=== PATIENT | male | born 1990 | race Caucasian/White ===

== ENCOUNTER 2020-12-29 03:16 | Inpatient (IN) ==
[2020-12-29 03:53] LABS: Amphetamines+Metham, Urine Neg (Neg); Barbiturates, Urine Neg (Neg); Benzodiazepine, Urine Neg (Neg); Cocaine, Urine Neg (Neg); MDMA (Ecstacy), Urine Neg (Neg); Methadone, Urine Neg (Neg); Opiate, Urine Neg (Neg); Phencyclidine, Urine Neg (Neg)
[2020-12-29 04:07] LABS: Basophils # (auto) 0.01 K/uL (0-0.2); Basophils % (auto) 0.1 %; Eosinophils # (auto) 0.02 K/uL (0-0.5); Eosinophils % (auto) 0.2 %; Hematocrit (blood only) 44.9 % (42-52); Immature Granulocytes # (auto) 0.02 K/uL (0.00-0.02); Immature Granulocytes % (auto) 0.2 %; Lymphocytes # (auto) 1.39 K/uL (1.2-3.4); Lymphocytes % (auto) 14.2 %; Mean Corpuscular Hemoglobin 29.8 pg (25-34); Mean Corpuscular Hgb Conc 35.6 g/dL (32-36); Mean Corpuscular Volume 83.6 fL (80-100); Mean Platelet Volume 9.7 fL (7.4-10.4); Monocytes # (auto) 0.48 K/uL (0.11-0.59); Monocytes % (auto) 4.9 %; Neutrophils # (auto) 7.84 K/uL (1.4-6.5); Neutrophils % (auto) 80.4 %; Platelet Count 220 K/uL (130-400); RDW Coefficient of Variation 12.5 % (11.5-14.5); RDW Standard Deviation 37.5 fL (36.4-46.3); Red Blood Count 5.37 M/uL (4.7-6.1); White Blood Count 9.76 K/uL (4.8-10.8)
[2020-12-29 04:25] LABS: BUN Creatinine Ratio 15.1 (10-20); Calcium 9.6 mg/dl (8.5-10.1); Creatinine Clr Calc Pharmacy 137.7 ml/min; Est GFR (African American) 120.1; Est GFR (Non-African American) 103.6; Potassium 3.6 mmol/L (3.5-5.1)
[2020-12-29 04:27] LABS: Acetaminophen < 2 ug/ml (10-30); Salicylate < 1.7 mg/dl (2.8-20)
[2020-12-29 04:32] LABS: Appearance Urine Clear (Clear); Bacteria Urine Automated Negative (Negative); Bilirubin Urine Negative (Negative); Blood Urine Negative (Negative); Color Urine Dark Yellow; Glucose Urine UA Negative (Negative); Ketones Urine Trace (Negative); Leukocyte Esterase Urine Negative (Negative); Nitrite Urine Negative (Negative); Protein Urine 1+ (Negative); RBC Urine Automated 0-4 /hpf (0-4); Specific Gravity Urine 1.027 (1.000-1.030); Urobilinogen Urine Negative (Negative); pH Urine 5.5 (4.5-7.5)
[2020-12-29 04:36] LABS: Albumin Globulin Ratio 1.1 (0.9-2); Bilirubin,Total 0.4 mg/dl (0.2-1); Globulin 3.5 gm/dl (2.5-4.0); Thyroid Stimulating Hormone 2.98 uIu/ml (0.300-4.500); Total Protein 7.5 gm/dl (6.4-8.2)
--- NOTE | 2020-12-29 04:43 | Emergency Department Note ---
History of Present Illness General Chief complaint: Mental Health Evaluation Stated complaint: MENTAL HEALTH Time Seen by Provider: 12/29/20 03:17 Source: patient Mode of arrival: other Limitations: no limitations History of Present Illness Provider complaint: Mental health evaluation This is a 30-year-old male brought in by police for mental health evaluation. A friend of the patient called 911 and alerted them to the patient making a statement of suicidality with a plan to overdose on his Lexapro that he takes for his anxiety. Patient recently broke up with his boyfriend. Patient states he is under significant stress from the break-up and concern for the health and wellbeing of his ex-boyfriend. Patient states he does have history of anxiety and does see a counselor. His Lexapro dosing was recently increased as result of increased anxiety. He states he has been trying to seek help from a psychiat rist, however has been unable to secure an appointment. Patient denies HI, paranoia, or hallucinations. Patient denies any drug or alcohol abuse. Pt seen during a time of high acuity and national emergency pandemic while wearing PPE. Home Medications Medication Instructions Recorded Confirmed Type ibuprofen 600 mg tablet 600 mg PO TID PRN tab 10/25/19 12/29/20 History escitalopram oxalate 20 mg tablet 20 mg PO QAM #90 tab 12/03/20 12/29/20 Rx Allergies Allergy/AdvReac Type Severity Reaction Status Date / Time No Known Allergies Allergy Verified 11/29/20 10:44 Past Med/Surg History Medical History (Updated 12/30/20 @ 06:53 by Rissa Ford DO) Anxiety Depression GERD (gastroesophageal reflux disease) occasional Lateral epicondylitis, right elbow Peptic ulcer disease ~2011 Rectal bleeding Rectal bleeding Suicidal ideation Tubular adenoma Surgical History History of esophagogastroduodenoscopy (EGD) Hx of colonoscopy Family History Mother Diabetes Grandfather Colorectal cancer Other No family history of adverse response to anesthesia Denies family history of Ovarian cancer Prostate cancer Myocardial infarction Breast cancer Social History Smoking Status: Current some day smoker Tobacco Type: E-cigarettes / Vaping Second Hand Exposure: No; Hx Alcohol Use: Yes Hx Substance Use: No Preferred Language: Czech Communication Ability: Effective Visual Impairment: No Limitations Hearing Ability: Normal Professor Of Special Education Required: No Beliefs That Will Affect Care: None marital status: Single Current Living Situation: Other Current Living Situation Comment: lives with a room-mate current occupational status: 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 and A total of 10 systems reviewed and were otherwise negative Physical Exam Vital Signs Vital Signs - 24 hr 12/29/20 03:48 12/29/20 06:32 Temperature 37.5 C Temperature Source Oral Pulse Rate 115 H Pulse Rate [Finger] 108 H Respiratory Rate 20 16 Respiratory Effort / Characteristics Non-Labored Spontaneous Non-Labored Spontaneous Respiratory Depth Normal Normal Blood Pressure 152/93 H Blood Pressure [Left Arm] 161/73 H Blood Pressure Mean 112 Blood Pressure Mean [Left Arm] 102 Pulse Oximetry 95 97 Oxygen Delivery Method Room Air Room Air Sepsis New/Unexplained Change in Mental Status N/A Sepsis Action Taken by Nursing No Action Required GENERAL: alert, anxious appearing, well nourished, no distress, non-toxic EYE EXAM: normal conjunctiva, PERRL and EOM's grossly intact OROPHARYNX: no exudate, no erythema, lips, buccal mucosa, and tongue normal and mucous membranes are moist NECK: supple, no nuchal rigidity, no adenopathy, non-tender LUNGS: Clear to auscultation. Normal chest wall mechanics, no w/r/r HEART: no murmurs, S1 normal and S2 normal ABDOMEN: abdomen soft, non-tender, normo-active bowel sounds, no masses, no rebound or guarding. BACK: Back is symmetrical on inspection and there is no deformity, no midline tenderness, no CVA tenderness. SKIN: no rashes and no bruising UPPER EXTREMITIES: upper extremities are grossly normal. FROM, nml pulses b/l. LOWER EXTREMITIES: No pitting edema. FROM, nml pulses b/l. NEURO EXAM: Normal sensorium, cranial nerves II-XII grossly intact, normal speech, no gross weakness of arms, no gross weakness of legs. Gross sensation intact. Course Course 0535: Patient seen and evaluated by Patience, correctional counselor/case manager. Patient at this time is not agreed with voluntary, however given suicidal ideation with plan, will uphold 302. 0800: patient being evaluated by [facility]. Administered Medications Escitalopram Oxalate (Escitalopram Oxalate 20 Mg Tab) 20 mg PO QAM [facility] Stop: 01/28/21 08:59 Last Admin: 12/29/20 11:37 Dose: 20 mg Documented by: [id number] Medical Decision Making Differential Diagnosis Differential diagnoses considered include mood disorder, infection, hypoglycemia, electrolyte abnormalities, cardiac sources, intracerebral event, toxicologic, neurologic, as well as others. Medical Records Attestation: I reviewed the patient's medical records. Home Medications Current Medication List: was personally reviewed by me Laboratory Data Attestation: I reviewed the patient's lab results. Result diagrams: 12/29/20 03:44 12/29/20 03:44 Lab Results 12/29/20 12/29/20 12/29/20 Range/Units 03:26 03:26 03:44 WBC 9.76 (4.8-10.8) K/uL RBC 5.37 (4.7-6.1) M/uL Hgb 16.0 (14.0-18.0) g/dL Hct 44.9 (42-52) % MCV 83.6 (80-100) fL MCH 29.8 (25-34) pg MCHC 35.6 (32-36) g/dL RDW Std Deviation 37.5 (36.4-46.3) fL RDW Coeff of Sharif 12.5 (11.5-14.5) % Plt Count 220 (130-400) K/uL MPV 9.7 (7.4-10.4) fL Immature Gran % (Auto) 0.2 % Neut % (Auto) 80.4 % Lymph % (Auto) 14.2 % Harding % (Auto) 4.9 % Eos % (Auto) 0.2 % Baso % (Auto) 0.1 % Neut # (Auto) 7.84 H (1.4-6.5) K/uL Lymph # (Auto) 1.39 (1.2-3.4) K/uL Harding # (Auto) 0.48 (0.11-0.59) K/uL Eos # (Auto) 0.02 (0-0.5) K/uL Baso # (Auto) 0.01 (0-0.2) K/uL Immature Gran # (Auto) 0.02 (0.00-0.02) K/uL Sodium (136-145) mmol/L Potassium (3.5-5.1) mmol/L Chloride (98-107) mmol/L Carbon Dioxide (21-32) mmol/L Anion Gap (3-11) BUN (7-18) mg/dl Creatinine (0.6-1.4) mg/dl Est Cr Clr Drug Dosing ml/min Est GFR ( Amer) Est GFR (Non-Af Amer) BUN/Creatinine Ratio (10-20) Glucose (70-99) mg/dl Calcium (8.5-10.1) mg/dl Total Bilirubin (0.2-1) mg/dl AST (15-37) U/L ALT (12-78) U/L Alkaline Phosphatase (45-117) U/L Total Protein (6.4-8.2) gm/dl Albumin (3.4-5.0) gm/dl Globulin (2.5-4.0) gm/dl Albumin/Globulin Ratio (0.9-2) TSH (0.300-4.500) uIu/ml Urine Color Dark Yellow Urine Appearance Clear (Clear) Urine pH 5.5 (4.5-7.5) Ur Specific [place] 1.027 (1.000-1.030) Urine Protein 1+ H (Negative) Urine Glucose (UA) Negative (Negative) Urine Ketones Trace H (Negative) Urine Blood Negative (Negative) Urine Nitrite Negative (Negative) Urine Bilirubin Negative (Negative) Urine Urobilinogen Negative (Negative) Ur Leukocyte Esterase Negative (Negative) Urine WBC (Auto) 1-5 (0-5) /hpf Urine RBC (Auto) 0-4 (0-4) /hpf U Hyaline Cast (Auto) 1-5 (0-5) /lpf U Epithel Cells (Auto) 5-10 H (0-5) /lpf Urine Bacteria (Auto) Negative (Negative) Salicylates (2.8-20) mg/dl Urine Opiates Screen Neg (Neg) Ur Methadone, Qual Neg (Neg) Acetaminophen (10-30) ug/ml Urine Barbiturates Neg (Neg) Ur Phencyclidine (PCP) Neg (Neg) U Amphetamin/Meth Scrn Neg (Neg) MDMA (Ecstasy) Screen Neg (Neg) U Benzodiazepines Scrn Neg (Neg) Ur Cocaine Metabolite Neg (Neg) U Marijuana (THC) Screen Neg (Neg) Ethyl Alcohol mg/dL (0-3) mg/dl COVID-19 Eval Order SARS-CoV-2, RNA, NAAT (NEGATIVE) 12/29/20 12/29/20 12/29/20 Range/Units 03:44 03:44 03:44 WBC (4.8-10.8) K/uL RBC (4.7-6.1) M/uL Hgb (14.0-18.0) g/dL Hct (42-52) % MCV (80-100) fL MCH (25-34) pg MCHC (32-36) g/dL RDW Std Deviation (36.4-46.3) fL RDW Coeff of Sharif (11.5-14.5) % Plt Count (130-400) K/uL MPV (7.4-10.4) fL Immature Gran % (Auto) % Neut % (Auto) % Lymph % (Auto) % Harding % (Auto) % Eos % (Auto) % Baso % (Auto) % Neut # (Auto) (1.4-6.5) K/uL Lymph # (Auto) (1.2-3.4) K/uL Harding # (Auto) (0.11-0.59) K/uL Eos # (Auto) (0-0.5) K/uL Baso # (Auto) (0-0.2) K/uL Immature Gran # (Auto) (0.00-0.02) K/uL Sodium 140 (136-145) mmol/L Potassium 3.6 (3.5-5.1) mmol/L Chloride 107 (98-107) mmol/L Carbon Dioxide 30 (21-32) mmol/L Anion Gap 3.0 (3-11) BUN 15 (7-18) mg/dl Creatinine 0.97 (0.6-1.4) mg/dl Est Cr Clr Drug Dosing 137.7 ml/min Est GFR ( Amer) 120.1 Est GFR (Non-Af Amer) 103.6 BUN/Creatinine Ratio 15.1 (10-20) Glucose 113 H (70-99) mg/dl Calcium 9.6 (8.5-10.1) mg/dl Total Bilirubin 0.4 (0.2-1) mg/dl AST 18 (15-37) U/L ALT 40 (12-78) U/L Alkaline Phosphatase 57 (45-117) U/L Total Protein 7.5 (6.4-8.2) gm/dl Albumin 4.0 (3.4-5.0) gm/dl Globulin 3.5 (2.5-4.0) gm/dl Albumin/Globulin Ratio 1.1 (0.9-2) TSH 2.980 (0.300-4.500) uIu/ml Urine Color Urine Appearance (Clear) Urine pH (4.5-7.5) Ur Specific [place] (1.000-1.030) Urine Protein (Negative) Urine Glucose (UA) (Negative) Urine Ketones (Negative) Urine Blood (Negative) Urine Nitrite (Negative) Urine Bilirubin (Negative) Urine Urobilinogen (Negative) Ur Leukocyte Esterase (Negative) Urine WBC (Auto) (0-5) /hpf Urine RBC (Auto) (0-4) /hpf U Hyaline Cast (Auto) (0-5) /lpf U Epithel Cells (Auto) (0-5) /lpf Urine Bacteria (Auto) (Negative) Salicylates < 1.7 L (2.8-20) mg/dl Urine Opiates Screen (Neg) Ur Methadone, Qual (Neg) Acetaminophen < 2 L (10-30) ug/ml Urine Barbiturates (Neg) Ur Phencyclidine (PCP) (Neg) U Amphetamin/Meth Scrn (Neg) MDMA (Ecstasy) Screen (Neg) U Benzodiazepines Scrn (Neg) Ur Cocaine Metabolite (Neg) U Marijuana (THC) Screen (Neg) Ethyl Alcohol mg/dL < 3.0 (0-3) mg/dl COVID-19 Eval Order SARS-CoV-2, RNA, NAAT (NEGATIVE) 12/29/20 12/29/20 Range/Units 04:21 04:21 WBC (4.8-10.8) K/uL RBC (4.7-6.1) M/uL Hgb (14.0-18.0) g/dL Hct (42-52) % MCV (80-100) fL MCH (25-34) pg MCHC (32-36) g/dL RDW Std Deviation (36.4-46.3) fL RDW Coeff of Sharif (11.5-14.5) % Plt Count (130-400) K/uL MPV (7.4-10.4) fL Immature Gran % (Auto) % Neut % (Auto) % Lymph % (Auto) % Harding % (Auto) % Eos % (Auto) % Baso % (Auto) % Neut # (Auto) (1.4-6.5) K/uL Lymph # (Auto) (1.2-3.4) K/uL Harding # (Auto) (0.11-0.59) K/uL Eos # (Auto) (0-0.5) K/uL Baso # (Auto) (0-0.2) K/uL Immature Gran # (Auto) (0.00-0.02) K/uL Sodium (136-145) mmol/L Potassium (3.5-5.1) mmol/L Chloride (98-107) mmol/L Carbon Dioxide (21-32) mmol/L Anion Gap (3-11) BUN (7-18) mg/dl Creatinine (0.6-1.4) mg/dl Est Cr Clr Drug Dosing ml/min Est GFR ( Amer) Est GFR (Non-Af Amer) BUN/Creatinine Ratio (10-20) Glucose (70-99) mg/dl Calcium (8.5-10.1) mg/dl Total Bilirubin (0.2-1) mg/dl AST (15-37) U/L ALT (12-78) U/L Alkaline Phosphatase (45-117) U/L Total Protein (6.4-8.2) gm/dl Albumin (3.4-5.0) gm/dl Globulin (2.5-4.0) gm/dl Albumin/Globulin Ratio (0.9-2) TSH (0.300-4.500) uIu/ml Urine Color Urine Appearance (Clear) Urine pH (4.5-7.5) Ur Specific [place] (1.000-1.030) Urine Protein (Negative) Urine Glucose (UA) (Negative) Urine Ketones (Negative) Urine Blood (Negative) Urine Nitrite (Negative) Urine Bilirubin (Negative) Urine Urobilinogen (Negative) Ur Leukocyte Esterase (Negative) Urine WBC (Auto) (0-5) /hpf Urine RBC (Auto) (0-4) /hpf U Hyaline Cast (Auto) (0-5) /lpf U Epithel Cells (Auto) (0-5) /lpf Urine Bacteria (Auto) (Negative) Salicylates (2.8-20) mg/dl Urine Opiates Screen (Neg) Ur Methadone, Qual (Neg) Acetaminophen (10-30) ug/ml Urine Barbiturates (Neg) Ur Phencyclidine (PCP) (Neg) U Amphetamin/Meth Scrn (Neg) MDMA (Ecstasy) Screen (Neg) U Benzodiazepines Scrn (Neg) Ur Cocaine Metabolite (Neg) U Marijuana (THC) Screen (Neg) Ethyl Alcohol mg/dL (0-3) mg/dl COVID-19 Eval [facility] SARS-[facility]-2, RNA, NAAT NEGATIVE (NEGATIVE) MDM Narrative This is a 30-year-old male who presents due to concern for anxiety, depression, and making suicidal statements with plan. Patient does see a counselor, has been unable to see a psychiatrist. Patient was recent started on medication for anxiety. Patient unwilling to come in voluntarily and given verbalization of suicidal ideation with plan and no way to assure safety of close follow-up, 302 was upheld. Patient seen and evaluated by [facility]. and accepted there for admiss ion. Impression & Plan Anxiety, Depression, Suicidal ideation Discharge Plan Visit Data Chief Complaint: Mental Health Evaluation Stated Complaint: MENTAL HEALTH ED Provider: Rissa Ford Discharge Problem: Anxiety, Depression, Suicidal ideation Patient Disposition: Admitted As Inpatient Discharge Instructions Interventions: ED Discharge Assessment Last Done: 12/29/20 10:18 Discharge Problem: Depression Qualifiers: Depression Type: unspecified Qualified Code(s): F32.9 - Major depressive disorder, single episode, unspecified
[2020-12-29] MEDS ORDERED: BISMUTH SUBSALICYLATE LIQD 236 ML PO PRN (08:04)
[2020-12-29] MEDS ORDERED: hydrOXYzine HCl 25 MG TAB PO PRN ×2 (08:04)
[2020-12-29] MEDS ORDERED: SODIUM CHLORIDE 0.65% NA SOLN 45 ML (OCEAN) PRN (08:04)
[2020-12-29] MEDS ORDERED: ACETAMINOPHEN 325 MG TAB PO PRN (08:04)
[2020-12-29] MEDS ORDERED: MAGNESIUM HYDROXIDE SUSP 30 ML UDC PO PRN (08:04)
[2020-12-29] MEDS ORDERED: IBUPROFEN 600 MG TAB PO PRN (08:04)
[2020-12-29] MEDS ORDERED: ALUMINUM/MAGNESIUM SUSP 30 ML UDC PO PRN (08:04)
[2020-12-29] MEDS: ESCITALOPRAM OXALATE 20 MG TAB PO SCH (11:37)
--- NOTE | 2020-12-29 12:07 | History & Physical ---
Date of Service December 29, 2020 Impression / Recommendations Impression 30 y/o M who is admitted involuntarily for suicidal ideation after an argument with his ex-boyfriend, in context of relationship discord. He has been off work for a couple of months due to mental health issues, and although PCP has been prescribing SSRI he has not been taking it. Inpatient treatment is medically necessary due to the severity of symptoms and risk of suicide if discharged. (1) Suicidal ideation: Continue involuntary inpatient treatment, suicide checks for safety. Encourage group attendance and participation, work on healthy coping skills and discharge safety plan. Family meeting with brother whom he lives with, and get collateral from brother. (2) Anxiety: Reviewed diagnoses and treatment recommendations, including medication and anxiety. Reviewed importance of taking medications daily in order for them to work. Will resume escitalopram 20mg daily and titrate as tolerated. (3) Depression: Symptoms are not consistent with MDD, more likely axis II. Interpersonal issues, reactivity of mood. Will try to contact therapist tomorrow to coordinate care, and get records from PCP. Depression Type: unspecified Qualified Code(s): F32.9 - Major depressive disorder, single episode, unspecified Risk Factors Assessment Male: Yes : Yes Do You Have Access To A Gun?: No Health Problems: No Mental Health Diagnoses: Yes Protective Factors Assessment : No Responsible for Young Children: No Employed: Yes ([employer] - off on [facility] for mental health currently) Stable Relationships: No Psychiatric History Identifying Data FRANKY COREY is a 30-year-old M who currently lives in [place], has a history of depression and anxiety, and was admitted on 12/29/20 08:04 on a 302 involuntary commitment for threats of suicide by overdose on pills. Chief Complaint "So I recently broke up with my boyfriend..". History of Present Illness Patient presented to the ER with police on a 302 after he said he was going to overdose on his prescribed Lexapro to end his life. Police completed a petition: " On Tuesday, December 29, 2020 at about 0245 hours your affiant was dispatched to the area of [address] for a mental health call. The comp, Farhat, called in as a third green party to report a suicidal subject in the area. On arrival, you affiant met with Franky Giordano. Pasquale told me that he and his ex-boyfriend broke up about a week prior. Tonight, he tried talking with ex- boyfriend at a bar. His ex started to see another friend of his on a relationship level. Pasquale followed his ex from the bar and went to his apartment. He told his ex that he was going to take a bunch of pills in an attempt to kill himself. you affiant asked Pasquale what he told his ex. Pasquale told your affiant that he was going to take 5 to 10 times the amount of Lexapro that he takes in an attempt to end his life. Your affiant believes that Pasquale is a threat to himself or others." He told ER staff that he broke up with his boyfriend because "she identifies as a female which goes against me never been with a female." He said he was concerned about his ex- boyfriend's mental health, as he was suicidal several weeks ago. He went to the bar last night to talk to his ask, who was there with another man. Patient was upset about this, and told his ex he was going to overdose on pills, stating "he doesn't care about me or he would have tried to help me." He said he also "flirted with the idea of overdosing last week." He reported not taking his Lexapro for 2 days, and then taking 3 tablets at once "to see what would happen." He was fixated on the break-up, wanted ER staff to get mental health treatment for his ask. While in the ER, he called 911, and staff had to intervene. He said he was just lonely and wanted to talk to someone. He asked ER staff to give him a lie detector test. He reported being depressed and anxious, not taking his Lexapro as prescribed, and said he was off work on [place] for mental health issues, but did not have a psychiatrist. He refused the recommendation for inpatient treatment, and was placed on an involuntary commitment. Admission labs were unremarkable. On my assessment, he states he was upset because he recently broke up with his boyfriend Paul who then went on a date yesterday with his friend Hernandez. He felt they didn't care about him, and confronted them at the bar where they were. Hernandez was "being very negative and making Paul go against me," accusing him of being a liar, and wouldn't listen to him. He felt they were "both going against me." He told Paul he was going to call the police on him, which upset them, and they ultimately called the police on him after he said he was going to overdose. He says he "said it in the heat of the moment," and is no longer wanting to hurt himself. He attended group and thought it was helpful, feels he is able to "see more of the big picture." He says his "world was centered around the relationship" and his boyfriend led him to believe they might get back together, but he thinks he needs to let go of the relationship. His friend Hernandez had gone to the bars with him Wednesday night and kissed him, and he knew that the night prior he'd been out with and intimate with another man. 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 due to "a lot of anxiety and stress," and says he is off work due to that, authorized by his therapist. 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 He reports worry about his relationships, but denies excessive worry/difficulty relaxing. Enjoys time w/ friends, playing video games. Denies h/o jessica, psychosis, PTSD, OCD, eating disorder. His PCP started escitalopram about 9 months ago, but he reports missing doses frequently, and hasn't been taking it at all in at least a week. He says he "just forgets" to take it. He reports financial strain due to buying things on credit (computer, credit card, car) and also has student debt and personal loan debt. States he "got a little greedy, felt I deserved something to make me happy." He doesn't like to be alone, moods can change quickly based on interpersonal interactions. He thinks he has ADHD as he has struggled to focus at work, and says his PCP prescribed him some stimulants, which helped but made him a little over energized at times, especially when mixed with caffeine. He was never assessed for ADHD as a child Past Psychiatric History Previous Psych History: Has never seen a psychiatrist. Current Psychiatric Diagnosis: Depression/Anxiety Outpatient Services: No psychiatrist. Therapist Romero Bahena. PCP, Dr. Morteza Hong, prescribes medications. Previous Psych Admissions: Denies Do You Have Access To A Gun?: No History of Previous Suicide Attempt: No Past Medication Trials: Lexapro - started by PCP approximately 9 months ago Allergies Allergy/AdvReac Type Severity Reaction Status Date / Time No Known Allergies Allergy Verified 11/29/20 10:44 Home Medications Medication Instructions Recorded Confirmed Type ibuprofen 600 mg tablet 600 mg PO TID PRN tab 10/25/19 12/29/20 History escitalopram oxalate 20 mg tablet 20 mg PO QAM #90 tab 12/03/20 12/29/20 Rx Family History Family History of: Doesn't Know Alcohol History Hx of Alcohol Use Over the Past 12 Months: Yes (occasional/social) Smoking Use Smoking Status: Current every day smoker Substance History Hx of Prescription Med Misuse Over the Past 12 Months: No Hx of Over the Counter Med Misuse Over the Past 12 Months: No Hx of Inhalent Misuse Over the Past 12 Months: No Hx of Organic Substance Use Over the Past 12 Months: No Hx of Illegal Substances/Street Drug Use Over Past 12 Months: No Problems as a Result of Past Substance Use: None Identified Personal History Living Arrangements: Home Living Arrangements Comments: with his brother and his in [place]. Has been in this area x 4 years. Was in [place] prior to that, and moved here to work as the minimum wage is higher here and he has debts (credit cards, personal loans, student loan, totaling over $38,000). 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[employer]) Marital Status: Single Beliefs That Will Affect Care: None Patient History Medical History (Updated 12/29/20 @ 12:06 by Deb Oshea MD) Anxiety Depression GERD (gastroesophageal reflux disease) occasional Lateral epicondylitis, right elbow Peptic ulcer disease ~2011 Rectal bleeding Rectal bleeding Suicidal ideation Tubular adenoma Surgical History History of esophagogastroduodenoscopy (EGD) Hx of colonoscopy Family History Mother Diabetes Grandfather Colorectal cancer Other No family history of adverse response to anesthesia Denies family history of Ovarian cancer Prostate cancer Myocardial infarction Breast cancer Social History Smoking Status: Current every day smoker Tobacco Type: E-cigarettes / Vaping Second Hand Exposure: No; Hx Alcohol Use: Yes Hx Substance Use: No Preferred Language: Ukrainian Communication Ability: Effective Visual Impairment: No Limitations Hearing Ability: Normal Service Bar Cashier Required: No Beliefs That Will Affect Care: None marital status: Single Current Living Situation: Other Current Living Situation Comment: lives with a room-mate current occupational status: employed 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 Feels Safe at Home: Yes Childhood Exposure to Second-Hand Smoke: No Dental Care, Regularly: Yes Physical Activity Frequency: Daily Seatbelt Use: always Sunscreen Use: Yes Assistive Devices: None Review of Systems Review of Systems: All systems reviewed & are unremarkable except as noted in Subjective Physical Exam Psychiatric: Orientation: alert, oriented x 3 and cooperative Apperance: appropriately dressed, appropriately groomed and appeared stated age Eye Contact: good eye contact Motor Behavior: steady gait and station and no abnormal motor movements Speech: normal rate/rhythm/volume of speech (accent) Affect: + anxious affect "A lot better" Thought Process: + circumstantial thought process Thought Content: + preoccupation (with ex boyfriend) Suicidal Thoughts: denies suicidal thoughts Homicidal Thoughts: denies homicidal thoughts Hallucinations: no auditory hallucinations and no visual hallucinations Cognition: recent memory grossly intact, attention grossly intact and language grossly intact Estimated Intelligence: consistent with education level Insight: + fair insight Judgement: + fair judgement Vital Signs (Past 24 Hours): Last Vital Signs Temp 37.5 C 12/29/20 03:48 Pulse 98 H 12/29/20 10:18 Resp 17 12/29/20 10:18 BP 160/78 H 12/29/20 10:18 Pulse Ox 98 12/29/20 10:18 Exam Statement: A physical exam was performed in the ER prior to admission to the unit by Dr. Ford. I accept that physical as correct/medical clearance for the inpatient physical exam. Results & Data ([facility]) Laboratory Results Laboratory Results - last 24 hr 12/29/20 12/29/20 12/29/20 03:26 03:26 03:44 WBC 9.76 RBC 5.37 Hgb 16.0 Hct 44.9 MCV 83.6 MCH 29.8 MCHC 35.6 RDW Std Deviation 37.5 RDW Coeff of Sharif 12.5 Plt Count 220 MPV 9.7 Immature Gran % (Auto) 0.2 Neut % (Auto) 80.4 Lymph % (Auto) 14.2 Fleming % (Auto) 4.9 Eos % (Auto) 0.2 Baso % (Auto) 0.1 Neut # (Auto) 7.84 H Lymph # (Auto) 1.39 Fleming # (Auto) 0.48 Eos # (Auto) 0.02 Baso # (Auto) 0.01 Immature Gran # (Auto) 0.02 Sodium Potassium Chloride Carbon Dioxide Anion Gap BUN Creatinine Est Cr Clr Drug Dosing Est GFR ( Amer) Est GFR (Non-Af Amer) BUN/Creatinine Ratio Glucose Calcium Total Bilirubin AST ALT Alkaline Phosphatase Total Protein Albumin Globulin Albumin/Globulin Ratio TSH Urine Color Dark Yellow Urine Appearance Clear Urine pH 5.5 Ur Specific Brooks 1.027 Urine Protein 1+ H Urine Glucose (UA) Negative Urine Ketones Trace H Urine Blood Negative Urine Nitrite Negative Urine Bilirubin Negative Urine Urobilinogen Negative Ur Leukocyte Esterase Negative Urine WBC (Auto) 1-5 Urine RBC (Auto) 0-4 U Hyaline Cast (Auto) 1-5 U Epithel Cells (Auto) 5-10 H Urine Bacteria (Auto) Negative Salicylates Urine Opiates Screen Neg Ur Methadone, Qual Neg Acetaminophen Urine Barbiturates Neg Ur Phencyclidine (PCP) Neg U Amphetamin/Meth Scrn Neg MDMA (Ecstasy) Screen Neg U Benzodiazepines Scrn Neg Ur Cocaine Metabolite Neg U Marijuana (THC) Screen Neg Ethyl Alcohol mg/dL COVID-19 Eval Order SARS-CoV-2, RNA, NAAT 12/29/20 12/29/20 12/29/20 03:44 03:44 03:44 WBC RBC Hgb Hct MCV MCH MCHC RDW Std Deviation RDW Coeff of Sharif Plt Count MPV Immature Gran % (Auto) Neut % (Auto) Lymph % (Auto) Fleming % (Auto) Eos % (Auto) Baso % (Auto) Neut # (Auto) Lymph # (Auto) Fleming # (Auto) Eos # (Auto) Baso # (Auto) Immature Gran # (Auto) Sodium 140 Potassium 3.6 Chloride 107 Carbon Dioxide 30 Anion Gap 3.0 BUN 15 Creatinine 0.97 Est Cr Clr Drug Dosing 137.7 Est GFR ( Amer) 120.1 Est GFR (Non-Af Amer) 103.6 BUN/Creatinine Ratio 15.1 Glucose 113 H Calcium 9.6 Total Bilirubin 0.4 AST 18 ALT 40 Alkaline Phosphatase 57 Total Protein 7.5 Albumin 4.0 Globulin 3.5 Albumin/Globulin Ratio 1.1 TSH 2.980 Urine Color Urine Appearance Urine pH Ur Specific Brooks Urine Protein Urine Glucose (UA) Urine Ketones Urine Blood Urine Nitrite Urine Bilirubin Urine Urobilinogen Ur Leukocyte Esterase Urine WBC (Auto) Urine RBC (Auto) U Hyaline Cast (Auto) U Epithel Cells (Auto) Urine Bacteria (Auto) Salicylates < 1.7 L Urine Opiates Screen Ur Methadone, Qual Acetaminophen < 2 L Urine Barbiturates Ur Phencyclidine (PCP) U Amphetamin/Meth Scrn MDMA (Ecstasy) Screen U Benzodiazepines Scrn Ur Cocaine Metabolite U Marijuana (THC) Screen Ethyl Alcohol mg/dL < 3.0 COVID-19 Eval Order SARS-CoV-2, RNA, NAAT 12/29/20 12/29/20 04:21 04:21 WBC RBC Hgb Hct MCV MCH MCHC RDW Std Deviation RDW Coeff of Sharif Plt Count MPV Immature Gran % (Auto) Neut % (Auto) Lymph % (Auto) Fleming % (Auto) Eos % (Auto) Baso % (Auto) Neut # (Auto) Lymph # (Auto) Fleming # (Auto) Eos # (Auto) Baso # (Auto) Immature Gran # (Auto) Sodium Potassium Chloride Carbon Dioxide Anion Gap BUN Creatinine Est Cr Clr Drug Dosing Est GFR ( Amer) Est GFR (Non-Af Amer) BUN/Creatinine Ratio Glucose Calcium Total Bilirubin AST ALT Alkaline Phosphatase Total Protein Albumin Globulin Albumin/Globulin Ratio TSH Urine Color Urine Appearance Urine pH Ur Specific Brooks Urine Protein Urine Glucose (UA) Urine Ketones Urine Blood Urine Nitrite Urine Bilirubin Urine Urobilinogen Ur Leukocyte Esterase Urine WBC (Auto) Urine RBC (Auto) U Hyaline Cast (Auto) U Epithel Cells (Auto) Urine Bacteria (Auto) Salicylates Urine Opiates Screen Ur Methadone, Qual Acetaminophen Urine Barbiturates Ur Phencyclidine (PCP) U Amphetamin/Meth Scrn MDMA (Ecstasy) Screen U Benzodiazepines Scrn Ur Cocaine Metabolite U Marijuana (THC) Screen Ethyl Alcohol mg/dL COVID-19 Eval Order Covid19 IDNow atMIAC SARS-CoV-2, RNA, NAAT NEGATIVE Current Inpatient Medications Current Inpatient Medications: Current Inpatient Medications Acetaminophen (Acetaminophen 325 Mg Tab) 650 mg PO Q4H PRN PRN Reason: Headache or Minor Fever Stop: 01/28/21 08:03 Al Hydrox/Mg Hydrox/Simethicone (Aluminum/Magnesium Susp 30 Ml Udc) 30 ml PO Q4H PRN PRN Reason: GI Upset Stop: 01/28/21 08:03 Bismuth Subsalicylate (Bismuth Subsalicylate Liqd 236 Ml) 15 ml PO PRN PRN PRN Reason: Loose Stool Stop: 01/28/21 08:03 Escitalopram Oxalate (Escitalopram Oxalate 20 Mg Tab) 20 mg PO QAM BARBIE Stop: 01/28/21 08:59 Last Admin: 12/29/20 11:37 Dose: 20 mg Documented by: Hydroxyzine HCl (Hydroxyzine Hcl 25 Mg Tab) 50 mg PO HSZ PRN PRN Reason: Insomnia Stop: 01/28/21 08:03 Hydroxyzine HCl (Hydroxyzine Hcl 25 Mg Tab) 25 mg PO Q4H PRN PRN Reason: Anxiety Stop: 01/28/21 08:03 Ibuprofen (Ibuprofen 600 Mg Tab) 600 mg PO TID PRN PRN Reason: Pain Stop: 01/28/21 08:03 Magnesium Hydroxide (Magnesium Hydroxide Susp 30 Ml Udc) 30 ml PO DAILY PRN PRN Reason: Constipation Stop: 01/28/21 08:03 Sodium Chloride (Sodium Chloride 0.65% Na Soln 45 Ml ([place])) 1 - 2 sprays NA PRN PRN PRN Reason: Nasal Dryness/Congestion Stop: 01/28/21 08:03
[2020-12-30] MEDS: ESCITALOPRAM OXALATE 20 MG TAB PO SCH (08:40)
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
[2020-12-31] MEDS: ESCITALOPRAM OXALATE 20 MG TAB PO SCH (08:48)
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
== END 2020-12-31 14:53 | disposition home or self-care (01) | DRG 881 ==
LOC: ED 03:16 → 3S 08:04